=== PATIENT | male | born 1950 | race Two or more races ===

== ENCOUNTER 2017-02-17 22:11 | Inpatient (IN) | payer OTHER ==
[~2017-02-17] VITALS: Ht 188 cm; Wt 88.0 kg
[2017-02-17] MEDS ORDERED: IV NS 0.9% 1,000 ML BAG IV ONE (22:30)
[2017-02-17] MEDS ORDERED: LIDOCAINE 2% JEL UROJET 10 ML MM ONE ×2 (22:30→23:04)
--- NOTE | 2017-02-17 22:30 | NUR ---
PT A/OX4 BREATHING EFFORTLESSLY ON ROOM AIR, PT STATES HE STARTED HAVING SHARP STABBING ABD PAIN SINCE 1999, PT DENIES INJURY OR TRAUMA, IV'S PLACED, PT ON MONITOR, FLUID STARTED PER MD REQUEST, PT IN GOWN AT BEDSIDE, WILL CONTINUE TO MONITOR.
[2017-02-17] MEDS ORDERED: IV SET PRIMARY 1 EA INFUS.SET MC ONE ×2 (22:32→23:33)
[2017-02-17] MEDS ORDERED: IV NS 0.9% 2,000 ML ONE (22:32)
[2017-02-17] MEDS ORDERED: IOHEXOL-350 100 ML VIAL IV ONE (22:33)
[2017-02-17] MEDS ORDERED: IV NS 0.9% 250 ML IV ONE (22:33)
[2017-02-17 22:50] LABS: EOSINOPHILS % (AUTO) 0.1 % (0.0-6.0); HEMATOCRIT 40 % (39-51); HEMOGLOBIN 13.2 g/dL (13.5-17.5); LYMPHOCYTES # (AUTO) 0.2 /CMM (0.8-4.8); LYMPHOCYTES % (AUTO) 3.2 % (20.0-44.0); MEAN CORPUSCULAR HEMOGLOBIN 33 PG (26.0-33.0); MEAN CORPUSCULAR HGB CONC 33 g/dl (31.0-36.0); MEAN CORPUSCULAR VOLUME 98 fL (80-96); MONOCYTES % (AUTO) 0.1 % (2.0-12.0); NEUTROPHILS # (AUTO) 5.5 /CMM (1.8-8.9); NEUTROPHILS % (AUTO) 96.6 % (43.0-81.0); PLATELET COUNT (AUTO) 332 /CMM (150-450); RDW COEFFICIENT OF VARIATION 13.8 (11.5-15.0); RED BLOOD CELL COUNT(AUTO) 4.06 MIL/uL (4.5-6.0); WHITE BLOOD COUNT (AUTO) 5.7 K/uL (4.3-11.0)
[2017-02-17 23:00] LABS: CALCIUM, SERUM 9.2 mg/dL (8.5-10.1); CARBON DIOXIDE 26 mmol/L (21-32); CHLORIDE 104 mmol/L (98-107); CREATININE 1.6 mg/dL (0.6-1.3); GFR 43 mL/min (>60); GLUCOSE 77 mg/dL (74-106); POTASSIUM 3.3 mmol/L (3.5-5.1); SODIUM SERUM 144 mmol/L (136-145); UREA NITROGEN, BLOOD 21 mg/dL (7-18)
[2017-02-17 23:06] LABS: ALANINE AMINOTRANSFERASE 35 U/L (12-78); ALBUMIN 3.4 g/dL (3.4-5.0); ALKALINE PHOSPHATASE 62 U/L (46-116); ASPARTATE AMINOTRANSFERASE 48 U/L (15-37); BILIRUBIN,DIRECT 0.2 mg/dL (0.0-0.2); TOTAL PROTEIN, SERUM 6.8 g/dL (6.4-8.2)
[2017-02-17 23:07] LABS: INR 1.01 (0.87-1.13); PROTHROMBIN TIME 10.8 SECS (9.5-12.7)
[2017-02-17 23:08] LABS: TROPONIN I < 0.017 ng/mL (0.00-0.056)
[2017-02-17 23:12] LABS: LACTIC ACID 4.4 mmol/L (0.4-2.0)
[2017-02-17 23:24] LABS: APPEARANCE,URINE SL CLOUDY (CLEAR); BILIRUBIN,URINE NEGATIVE (NEGATIVE); BLOOD, URINE 3+ Ery/uL (NEGATIVE); COLOR,URINE YELLOW (YELLOW); KETONES,URINE TRACE (NEGATIVE); LEUKOCYTE ESTERASE ,URINE 2+ (NEGATIVE); NITRITE, URINE NEGATIVE (NEGATIVE); PH,URINE 5.5 (5.0-8.0); PROTEIN,URINE TRACE mg/dl (NEGATIVE); UGLUCOSE NEGATIVE (NEGATIVE); UROBILINOGEN,URINE 0.2 EU/dL (0.2)
[2017-02-17] MEDS ORDERED: IV NS 0.9% 1,000 ML ONE (23:33)
[2017-02-17 23:34] LABS: RBC,URINE 51-80 /HPF (0-2); WBC,URINE 21-50 /HPF (0-3)
[2017-02-17 23:35] LABS: ADD URINE CULTURE YES; BACTERIA,URINE 2+ /HPF (None Seen); SQUAMOUS EPITHELIAL CELL,UR None Seen /HPF (None Seen)
--- NOTE | 2017-02-18 00:05 | NUR ---
PT STATES HE IS DOING A LITTLE BETTER AND IS RESTING MD MADE AWARE WILL CONTINUE TO MONITOR.
[2017-02-18] MEDS ORDERED: AZTREONAM 2 G in IV NS 0.9% 100 ML IV ONE (00:30)
[2017-02-18] MEDS ORDERED: VANCOMYCIN 1 GM in IV D5W 250 ML IV ONE (00:30)
[2017-02-18] MEDS ORDERED: IV SET PRIMARY 1 EA INFUS.SET MC ONE ×2 (00:54→01:58)
[2017-02-18] MEDS ORDERED: IV NS 0.9% 100 ML IV ONE (00:54)
[2017-02-18] MEDS ORDERED: AZTREONAM 1 G VIAL ONE (00:54)
--- NOTE | 2017-02-18 01:07 | NUR ---
PT STATES HE IS FEELING A LITTLE BETTER MD MADE AWARE VSS WILL CONTINUE TO MONITOR.
[2017-02-18] MEDS ORDERED: IV NS 0.9% 1,000 ML ONE (01:58)
[2017-02-18] MEDS ORDERED: IV D5W 250 ML IV ONE (01:58)
[2017-02-18] MEDS ORDERED: VANCOMYCIN 1 GM VIAL ONE (01:58)
[2017-02-18] MEDS ORDERED: IV SET PRIMARY PUMP SET 1 EA INFUS.SET MC ONE ×3 (01:58→04:48)
[2017-02-18] MEDS ORDERED: IV NS 0.9% 1,000 ML BAG IV ONE (02:00)
[2017-02-18] MEDS ORDERED: ASPI-605 PO (02:05)
[2017-02-18] MEDS ORDERED: CLOP75TA2 PO (02:05)
[2017-02-18] MEDS ORDERED: SIMV40TA5 PO (02:05)
[2017-02-18 02:30] VITALS: BP 98/64
--- NOTE | 2017-02-18 02:30 | NUR ---
RN ADMITTING NOTES RECEIVED PATIENT FROM ER, TRANSPORTED VIA GURNEY AND ACCOMPANIED BY ER ER, [place]. PATIENT ASSISTED TO BED, SAFETY AND COMFORT ENSURED. ORIENTED TO UNIT PROTOCOLS AND USE OF CALL LIGHT. PATIENT ADMITTED UNDER THE CARE OF DR. FISHER WITH DIAGNOSIS OF UTI. CONNECTED ON TELE MONITOR, SR AT 76. PATIENT IS ALERT AND ORIENTED X3-4. ABLE TO MAKE NEEDS KNOWN AND DENIES ANY PAIN AND DISCOMFORT AT THIS TIME. ON 2LPM OF O2 VIA NC, SATURATING AT 97%. LUNGS ARE CLEAR, NO CONGESTION NOTED. RECEIVED FROM ER WITH VANCO 1G RUNNING AND 4TH BAG OF NS BOLUS. WITH RIGHT AND LEFT AC G18, FLUSHED AND KEPT PATENT, NO SIGNS OF INFILTRATION NOTED. BODY CHECK DONE, SKIN IS INTACT, NO SKIN BREAKDOWN NOTED. BELONGINGS CHECKED AND FILED IN CHART. PATIENT'S NEEDS ANTICIPATED AND MET. SAFETY AND COMFORT ENSURED. CALL LIGHT IN REACH .WILL MONITOR. ORDERS NOTED AND CARRIED OUT. Addendum: 02/18/17 at 0346 by BRITANY HANLEY RN RECEIVED PATIENT WITH F/C, INSERTED IN THE ER. F/C DRAINING WELL WITH CLEAR, YELLOW URINE.
[2017-02-18] MEDS ORDERED: IV PREMIX NS +20MEQ KCL 1 L IV ONE (03:46)
[2017-02-18 04:00] VITALS: BP 97/60
[2017-02-18] MEDS ORDERED: ZOLPIDEM TARTRATE 10 MG TABLET PO PRN (04:00)
[2017-02-18] MEDS ORDERED: HYDROCODONE/APAP 5/325MG 1 EACH TABLET PO PRN (04:00)
[2017-02-18] MEDS ORDERED: ONDANSETRON HCL/PF 4 MG/2 ML VIAL IV PRN (04:00)
--- NOTE | 2017-02-18 04:00 | NUR ---
RN NOTES COMPLETED 4TH BAG OF NS BOLUS PER SEPSIS PROTOCOL INITIATED FROM ER. PATIENT'S VS CHECKED AND NOTED TO BE 97.5, 72, 18, 96%, 97/60. PATIENT NOT IN ANY DISTRESS. DENIES ANY DISCOMFORT. LEFT A VOICE MESSAGE TO DR. FISHER. PATIENT IS RESTING COMFORTABLY AT THIS TIME.
[2017-02-18] MEDS: Potassium Chloride 20 MEQ in IV NS 0.9% 1,000 ML IV PRN ×2 (05:01→16:29)
--- NOTE | 2017-02-18 06:29 | NUR ---
RN NOTES FOLLOWED UP WITH DR. FISHER WITH REGARDS TO THE ORDERED MEROPENEM ORDER. PATIENT'S ALLERGY INCLUDE PCN. AWAITING CALL BACK FOR CLARIFICATION.
--- NOTE | 2017-02-18 06:45 | NUR ---
RN NOTES SPOKE WITH DR. FISHER AND CLARIFIED PATIENT'S ORDER FOR MEROPENEM D/T PATIENT'S ALLERGY TO PCN. MEROPENEM DISCONTINUED AND CHANGED TO LEVAQUIN 500MG IV Q24H TO START IN AM. ORDER NOTED AND CARRIED OUT. CN MADE AWARE. PATIENT NOTIFIED.
--- NOTE | 2017-02-18 06:52 | NUR ---
RN CLOSING NOTES PATIENT IN BED, SLEEPING COMFORTABLY. PATIENT NOT IN ANY ACUTE DISTRESS. ON 2LPM OF O2 VIA NC. IVF OF NS AT 20MEQ KCL INFUSING WELL ON PATIENT'S R AC. REMAINS SR ON TELE AT 75. F/C INTACT AND DRAINING WELL WITH CLEAR, YELLOW TO REBEKA COLORED URINE. FOUL ODOR URINE NOTED UPON DRAINING PULIDO BAG. PATIENT ASSISTED WITH ADLS NEEDED. ABLE TO AMBULATE WITH STEADY GAIT NOTED, ASSISTED WITH FALL PRECAUTIONS OBSERVED. AM LABS DRAWN. PATIENT'S NEEDS ANTICIPATED AND MET. SAFETY AND COMFORT ENSURED. BED IN LOW AND LOCKED POSITION. CALL LIGHT IN REACH. WILL ENDORSE ACCORDINGLY FOR CONTINUITY OF CARE.
[2017-02-18 06:54] LABS: CALCIUM, SERUM 7.5 mg/dL (8.5-10.1); CREATININE 1.4 mg/dL (0.6-1.3); POTASSIUM 3.5 mmol/L (3.5-5.1)
[2017-02-18 06:58] LABS: HEMATOCRIT 34 % (39-51); HEMOGLOBIN 11.2 g/dL (13.5-17.5); LYMPHOCYTES # (AUTO) 0.1 /CMM (0.8-4.8); LYMPHOCYTES % (AUTO) 0.3 % (20.0-44.0); MEAN CORPUSCULAR HEMOGLOBIN 33 PG (26.0-33.0); MEAN CORPUSCULAR HGB CONC 33 g/dl (31.0-36.0); MEAN CORPUSCULAR VOLUME 100 fL (80-96); MONOCYTES # (AUTO) 0.6 /CMM (0.1-1.30); MONOCYTES % (AUTO) 2.3 % (2.0-12.0); NEUTROPHILS # (AUTO) 25.6 /CMM (1.8-8.9); NEUTROPHILS % (AUTO) 97.4 % (43.0-81.0); PLATELET COUNT (AUTO) 245 /CMM (150-450); RDW COEFFICIENT OF VARIATION 14.1 (11.5-15.0); RED BLOOD CELL COUNT(AUTO) 3.44 MIL/uL (4.5-6.0); WHITE BLOOD COUNT (AUTO) 26.3 K/uL (4.3-11.0)
--- NOTE | 2017-02-18 07:30 | NUR ---
initial note patient resting in bed a+o x3, denies pain. states is sleepy. breathing wnl. no discomfort at Ludwig site. BL AC IV patent, no complications. prescribed iv fluids infusing. discussed plan of care. ludwig catheter patent. needs attended to. call light in reach
[2017-02-18 07:35] LABS: INR 1.06 (0.87-1.13); PROTHROMBIN TIME 11.4 SECS (9.5-12.7)
[2017-02-18 08:00] VITALS: BP_SYST 85; BP_SYST 94; BP_DIAS 45; BP_DIAS 56
[2017-02-18] MEDS ORDERED: IV NS 0.9% 1,000 ML IV PRN (08:30)
[2017-02-18] MEDS ORDERED: SECONDARY IV SET 1 EA INFUS.SET MC ONE (09:37)
[2017-02-18] MEDS: LEVOFLOXACIN 500 MG /D5W 100ML 500 MG in PREMIX 1 EA IV SCH (09:41)
[2017-02-18] MEDS: HEPARIN SODIUM, PORCINE 5000 UNITS/1 ML VIAL SQ SCH ×2 (09:42→21:54)
[2017-02-18] MEDS: SIMVASTATIN 40 MG TABLET PO SCH (11:08)
[2017-02-18] MEDS: CLOPIDOGREL BISULFATE 75 MG TABLET PO SCH (11:08)
[2017-02-18] MEDS: ASPIRIN EC 81 MG TABLET.DR PO SCH (11:08)
[2017-02-18 12:00] VITALS: BP 89/56
[2017-02-18 12:24] LABS: BAND % (MANUAL) 8 % (0.0-5.0); MONOCYTES % (MANUAL) 1 % (0-11.0); NEUTROPHILS % (MANUAL) 91 (42-76)
[2017-02-18 12:25] LABS: PLATELET ESTIMATE ADEQUATE
[2017-02-18 12:33] LABS: LYMPHOCYTES % (MANUAL) 0 % (16-48)
[2017-02-18] MEDS: ACETAMINOPHEN 325 MG TABLET PO PRN (15:22)
--- NOTE | 2017-02-18 15:51 | NUR ---
RN NOTE INFORMED DR. FISHER ABOUT POSITIVE BLOOD CULTURE WITH GRAM NEG RODS. RECOMMENDED INFECTION CONTROL CONSULT. SAID PATIENT IS PLANNED TO TRANSFER TO ANOTHER HOSPITAL, NO CONSULT AT THIS TIME.
[2017-02-18 16:00] VITALS: BP 92/58
--- NOTE | 2017-02-18 19:27 | NUR ---
CLOSING NOTES HANDED OFF REPORT. LEFT PATIENT IN STABLE CONDITION. VERBALIZING NEEDS. BREATHING WNL, DENIES PAIN. PAGED DR. FISHER FOR ORDER TO REMOVE PULIDO CATH. ENDORSED TO NIGHT NURSE TO FOLLOW UP. CALL LIGHT IN REACH.
--- NOTE | 2017-02-18 19:35 | NUR ---
ALEXIS RN NOTE PT IN BED SEMIFOWLER, A/OX 4, NO SOB NO DISTRESS OR DISCOMFORT NOTED. DENIES PAIN. IVF NS WITH 20 MEQ KCL INFUSING WELL 100 ML/HR, NO S/S OF INFILTRATION NOTED. ON TELE SR HR 68. PT DENIES ANY WEAKNESS. ABLE TO AMBULATE WITH STEADY GAIT. F/C DC'D PER MD ORDER, PT TOLERATED WELL. URINE COLOR DARK YELLOW BUT CLEAR. SIDE RAILS UP X 2 AND CALL LIGHT WITHIN REACH. VSS. CONTINUE TO MONITOR HIM.
[2017-02-18 20:00] VITALS: BP 94/55
--- NOTE | 2017-02-18 20:50 | NUR ---
ALEXIS RN NOTE EXCHANGE MECHANIC SANCHEZ CALLED AND INFORMED ME THAT BLOOD CX #2 IS GRAM - RODS, DR FISHER INFORMED NO NEW ORDER.
--- NOTE | 2017-02-18 21:00 | NUR ---
ALEXIS RN NOTE PT ABLE TO URINATE IN THE BATHROOM, URINE YELLOWISH IN COLOR. STEADY GAIT. CONTINUE TO MONITOR HIM.
[2017-02-18] MEDS ORDERED: TAMSULOSIN 0.4 MG CAP.SR.24H PO SCH (22:00)
[2017-02-19] VITALS: BP 92/55
[2017-02-19] MEDS: Potassium Chloride 20 MEQ in IV NS 0.9% 1,000 ML IV PRN (03:08)
[2017-02-19 04:00] VITALS: BP 121/65
--- NOTE | 2017-02-19 06:34 | NUR ---
ALEXIS RN NOTE PT IN BED ASLEEP, EASILY AROUSABLE. NO DISTRESS OR DISCOMFORT NOTED. DENIES PAIN. IVF INFUSING WELL, NO S/S OF INFILTRATION NOTED. ON TELE SR HR 80. SIDE RAILS UP X 2 AND CALL LIGHT WITHIN REACH. WILL ENDORSE TO DAY SHIFT NURSE FOR CONTINUE TO CARE.
[2017-02-19 06:44] LABS: EOSINOPHILS # (AUTO) 0.2 /CMM (0.0-0.7); EOSINOPHILS % (AUTO) 0.7 % (0.0-6.0); HEMATOCRIT 36 % (39-51); HEMOGLOBIN 11.8 g/dL (13.5-17.5); LYMPHOCYTES # (AUTO) 0.9 /CMM (0.8-4.8); LYMPHOCYTES % (AUTO) 3.1 % (20.0-44.0); MEAN CORPUSCULAR HEMOGLOBIN 33 PG (26.0-33.0); MEAN CORPUSCULAR HGB CONC 33 g/dl (31.0-36.0); MEAN CORPUSCULAR VOLUME 100 fL (80-96); MONOCYTES # (AUTO) 0.8 /CMM (0.1-1.30); MONOCYTES % (AUTO) 2.5 % (2.0-12.0); NEUTROPHILS # (AUTO) 28.1 /CMM (1.8-8.9); NEUTROPHILS % (AUTO) 93.7 % (43.0-81.0); PLATELET COUNT (AUTO) 237 /CMM (150-450); RDW COEFFICIENT OF VARIATION 14.4 (11.5-15.0)
[2017-02-19 07:01] LABS: CALCIUM, SERUM 8.1 mg/dL (8.5-10.1); CREATININE 1.1 mg/dL (0.6-1.3)
--- NOTE | 2017-02-19 07:09 | NUR ---
RN NOTES RECEIVED CALL FROM LAB WITH CRITICAL VALUE OF WBC COUNT 30. DR FISHER MADE AWARE, NNO RECEIVED AT THIS TIME.
--- NOTE | 2017-02-19 07:15 | NUR ---
ALEXIS RN NOTE DISTRIBUTION MANAGER ZAINA CALLED AND INFORMED WBC 30. DR NATALIA MANN. ENDORSED TO DAY SHIFT NURSE TO FOLLOW UP.
[2017-02-19 07:20] LABS: POTASSIUM 4.5 mmol/L (3.5-5.1)
--- NOTE | 2017-02-19 07:25 | NUR ---
ALEXIS RN NOTE DR FISHER GAVE NO NEW ORDER.
--- NOTE | 2017-02-19 07:30 | NUR ---
RN NOTES RECEIVED PATIENT IN BED ALERT, AWAKE, ORIENTED X 3 WITH BREATHING NORMAL, EVEN AND UNLABORED. NO SOB NOTED. ON 2L O2 VIA NC, SATURATING WELL. NO ACUTE DISTRESS NOTED. TELE MONITOR REVEALS SR , HR=60. IV RAC18G AND LAC 18G ARE PATENT AND INTACT, RUNNING IVF PER ORDER. KEPT CLEAN, DRY AND COMFORTABLE. ALL NEEDS ATTENDED. SAFETY MEASURE OBSERVED. CALL LIGHT WITH IN REACH. WILL CONT TO MONITOR.
[2017-02-19 08:00] VITALS: BP 111/69
[2017-02-19] MEDS: ACETAMINOPHEN 325 MG TABLET PO PRN (08:42)
[2017-02-19] MEDS: SIMVASTATIN 40 MG TABLET PO SCH (08:43)
[2017-02-19] MEDS: LEVOFLOXACIN 500 MG /D5W 100ML 500 MG in PREMIX 1 EA IV SCH (08:43)
[2017-02-19] MEDS: CLOPIDOGREL BISULFATE 75 MG TABLET PO SCH (08:43)
[2017-02-19] MEDS: ASPIRIN EC 81 MG TABLET.DR PO SCH (08:43)
[2017-02-19] MEDS: HEPARIN SODIUM, PORCINE 5000 UNITS/1 ML VIAL SQ SCH (08:44)
[2017-02-19 08:52] LABS: ANISOCYTOSIS 1+; EOSINOPHILS % (MANUAL) 1 % (0-4); LYMPHOCYTES % (MANUAL) 1 % (16-48); MONOCYTES % (MANUAL) 4 % (0-11.0); NEUTROPHILS % (MANUAL) 94 (42-76); PLATELET ESTIMATE ADEQUATE
[2017-02-19 12:00] VITALS: BP 104/64
--- NOTE | 2017-02-19 13:15 | NUR ---
RN NOTES PATIENT TRANSFERRED TO [facility] IN STABLE CONDITION WITH BREATHING NORMAL, EVEN AND UNLABORED. NO SOB NOTED. NO ACUTE DISTRESS NOTED. DENIES ANY PAIN OR DISCOMFORT. KEPT CLEAN, DRY AND COMFORTABLE. ALL NEEDS ATTENDED. REPORT GIVEN TO ALFONSO GIBSON. PATIENT LEFT VIA AMBULANCE IN STABLE CONDITION.
== END 2017-02-19 13:36 | disposition short-term general hospital (02) | DRG 871 ==
LOC: ER 22:14 → EDBD 22:14 → TELE-TD 02-18 01:50
PROVIDERS: ADMIT Internal Medicine; ATTEND Internal Medicine
DX: A41.9 Sepsis, unspecified organism (principal); N17.0 Acute kidney failure with tubular necrosis; E87.2 Acidosis; N39.0 Urinary tract infection, site not specified; E78.5 Hyperlipidemia, unspecified; Z86.73 Personal history of transient ischemic attack (TIA), and cerebral infarction without residual deficits
CPT/HCPCS: 36415; 71010-TC; 80048-TC; 80076-TC; 81000-TC; 83605-TC; 84484-TC; 85025-TC; 85610-TC; 85730-TC; 87040-TC; 87081-TC; 87086-TC; 87186-TC; A4216; A4606; A6253; J1644; J1956; J3370; J3480; J3490; J7030; J7050; J7060; Q9967; Z7610